=== PATIENT | female | born 1975 ===

== ENCOUNTER 2021-01-11 08:47 | Outpatient (CLI) | payer OTHER | END 2021-01-11 09:13 | disposition home or self-care (01) | LOC: RAD 08:47 | PROVIDERS: ATTEND Obstetrics & Gynecology | DX: N85.2 Hypertrophy of uterus (principal); D25.1 Intramural leiomyoma of uterus; N92.0 Excessive and frequent menstruation with regular cycle; N60.11 Diffuse cystic mastopathy of right breast; N60.12 Diffuse cystic mastopathy of left breast ==